=== PATIENT | female | born 2000 | race Caucasian/White ===

== ENCOUNTER 2021-11-22 14:17 | Emergency (ER) | payer OTHER ==
[~2021-11-22] VITALS: Ht 160 cm; Wt 65.8 kg
[2021-11-22 14:40] VITALS: BP_SYST 110
[2021-11-22] MEDS ORDERED: ACETAMINOPHEN 500 MG TABLET PO ONE (18:45)
[2021-11-22] MEDS ORDERED: ONDANSETRON HCL 4 MG/2 ML VIAL IVP ONE (20:15)
[2021-11-22] MEDS ORDERED: D5LR 1,000 ML IV ONE (20:15)
[2021-11-22 21:41] LABS: BILIRUBIN,URINE NEGATIVE (NEGATIVE); BLOOD, URINE 1+ (NEGATIVE); CLARITY/URINE SL CLOUDY (CLEAR); COLOR,URINE YELLOW (YELLOW); GLUCOSE,URINE NEGATIVE (NEGATIVE); KETONES,URINE 1+ (NEGATIVE); LEUKOCYTE ESTERASE ,URINE NEGATIVE (NEGATIVE); NITRITE, URINE POSITIVE (NEGATIVE); PH,URINE 6.5 (5.0-8.0); PROTEIN URINE NEGATIVE (NEGATIVE); UROBILINOGEN,URINE 0.2 (0.2-1.0)
[2021-11-22 22:17] LABS: BACTERIA,URINE MANY /HPF (None Seen); RBC,URINE 0-3 /HPF (0-3); WBC,URINE 0-3 /HPF (0-3)
[2021-11-22 22:18] LABS: MUCUS,URINE None Seen /LPF (None Seen)
[2021-11-22] MEDS ORDERED: DOXY25TA61 PO (23:05)
[2021-11-22] MEDS ORDERED: SENN8.6T19 PO (23:05)
[2021-11-22] MEDS ORDERED: PYRI50CA PO (23:05)
[2021-11-22] MEDS ORDERED: CEPH-548 PO (23:08)
[2021-11-22 23:09] VITALS: BP_SYST 115
== END 2021-11-22 23:09 | disposition home or self-care (01) ==
LOC: SED 14:17
DX: O20.0 Threatened abortion (principal); O23.41 Unspecified infection of urinary tract in pregnancy, first trimester; N39.0 Urinary tract infection, site not specified; Z3A.08 8 weeks gestation of pregnancy; Z79.899 Other long term (current) drug therapy
CPT/HCPCS: 36415; 76801; 81000; 81025; 84702; 86886; 86900; 86901; 87086; 96361; 96374; 99284; J2405; J7030